=== PATIENT | male | born 1950 | race Caucasian/White ===

== ENCOUNTER → 2024-12-08 09:32 | Outpatient (CLI) | payer MEDICARE, SELFPAY | PROVIDERS: PCP Student in an Organized Health Care Education/Training Program; Referring Provider Student in an Organized Health Care Education/Training Program; Visit Provider Student in an Organized Health Care Education/Training Program | DX: I26.99 Other pulmonary embolism without acute cor pulmonale (principal); Z87.891 Personal history of nicotine dependence; R94.2 Abnormal results of pulmonary function studies; R06.02 Shortness of breath | CPT/HCPCS: 94060; 94726; 94729 ==